=== PATIENT | female | born 1990 | race Caucasian/White ===

== ENCOUNTER 2023-02-14 14:35 | Emergency (ER) | payer SELFPAY ==
[2023-02-14 14:53] VITALS: BP 126/75; PULSE 75; RESP 16; TEMP 37; O2SAT 100
--- NOTE | 2023-02-14 15:30 | ED.GENADULT ---
HPI - General Adult General Chief complaint: Back Pain/Injury Stated complaint: back pain Time Seen by Provider: 02/14/23 15:23 Source: patient and RN notes reviewed Mode of arrival: ambulatory Limitations: no limitations History of Present Illness HPI narrative: Patient presents today complaining of left flank pain since last week. Pain now radiates around the lateral portion of her abdomen. Denies any urinary symptoms. She has been taking ibuprofen without much relief. History of kidney stones with lithotripsy approximately 10 years ago. 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 Related Data Allergies Allergy/AdvReac Type Severity Reaction Status Date / Time Iodinated Contrast Media Allergy Unknown Itching Verified 02/14/23 14:43 Contrast Media Allergy Unknown itching/[place] Uncoded 02/14/23 14:43 h Review of Systems Review of Systems: CONSTITUTIONAL: Denies body aches, fever, chills, or sweats. EYES: Denies visual changes, redness, or discharge. ENT: Denies rhinorrhea, congestion, sore throat, or otalgia. CARDIOVASCULAR: Denies chest pain, palpitations, or edema. RESPIRATORY: Denies cough or dyspnea. GASTROINTESTINAL: Denies abdominal pain, nausea, vomiting, or diarrhea.+ left flank pain GENITOURINARY: Denies dysuria or hematuria. SKIN: Denies rash, itching, or wounds. MUSCULOSKELETAL: Denies back pain, joint pain, or myalgia. NEUROLOGIC: Denies headache, numbness, tingling, or weakness. PSYCH: Denies depression or anxiety. [facility] Past Medical History Medical History (Updated 02/14/23 @ 15:39 by Fany Holm, [facility], ) History of kidney stones Comments At time of signature, I have reviewed and agree with nursing past medical, surgical, social and family history unless otherwise noted. Please see nursing chart for further information. There is no relevant family history pertinent to the presenting complaint Exam Narrative: GENERAL: Well-appearing, well-nourished, and in no acute distress. HEAD: Normocephalic, atraumatic. EYES: EOMI. No redness or drainage. Conjunctivae normal. ENT: Mucous membranes pink and moist. NECK: Normal AROM. CHEST: No respiratory distress. Clear to auscultation. HEART: Regular rate and rhythm. No murmur appreciated. Normal peripheral pulses. ABDOMEN: Soft, nontender, nondistended, normal active bowel sounds. MUSCULOSKELETAL: No bony tenderness. EXTREMITIES: Normal range of motion. No edema. SKIN: Warm, dry, no rash. Capillary refill normal. Normal skin turgor. NEURO: No focal deficits. Alert and oriented x3. Gait steady. PSYCH: Normal affect. No signs of depression or anxiety. Course Course Level of Care: Express Care Visit Vital Signs Vital signs: Vital Signs Temperature 98.6 F 02/14/23 14:53 Pulse Rate 75 02/14/23 14:53 Respiratory Rate 16 02/14/23 14:53 Blood Pressure 126/75 02/14/23 14:53 Pulse Oximetry 100 02/14/23 14:53 Oxygen Delivery Room Air 02/14/23 14:53 Temperature 98.6 F 02/14/23 14:53 Pulse Rate 75 02/14/23 14:53 Respiratory Rate 16 02/14/23 14:53 Blood Pressure 126/75 02/14/23 14:53 Pulse Oximetry 100 02/14/23 14:53 Oxygen Delivery Room Air 02/14/23 14:53 Reviewed. Pt has been instructed to follow up with her PCP regarding her elevated blood pressure today. Medical Decision Making MDM Narrative Medical decision making narrative: Urinalysis is negative for infection. Discussed results with patient. She declines x-ray to try and rule out kidney stone. She declines transfer to the ER for further evaluation. Patient understands that I cannot rule out a kidney stone from [facility] without any further testing. Agrees with plan to discharge with prescription for toradol. Anticipatory guidance given. Differential Diagnosis Differential Diagnosis: UTI, kidney stone, pyelonephritis, back strain Vital Signs Vital Signs: Vital
== END 2023-02-14 15:49 | disposition home or self-care (01) ==
PROVIDERS: Emergency Provider Nurse Practitioner; PCP Physician Assistant
DX: R10.9 Unspecified abdominal pain (principal); Z87.442 Personal history of urinary calculi
CPT/HCPCS: 81003; 99213; G0463

== ENCOUNTER 2024-02-06 15:44 | Emergency (ER) | payer OTHER, SELFPAY ==
--- NOTE | 2024-02-06 15:46 | ED.FEMALEGU ---
HPI - Female Genitourinary General Chief complaint: Urogenital-Female Stated complaint: Uti Symptoms Time Seen by Provider: 02/06/24 15:45 Source: patient Mode of arrival: ambulatory Limitations: no limitations History of Present Illness HPI Narrative: Yarelis is a 33-year-old female patient presenting to clinic today with complaints of possible urinary tract infection. She reports over the past week she has had some lower abdominal cramping. Also reports some pain in the left flank area at times. Just finished up her menses a few days ago. States the abdominal cramping is normal before during and after her menses. States she has been sexually active with a new partner and is concerned for sexually transmitted infections. She denies any vaginal discharge or odor at this time. Was unable to get in to see her primary care so she came into the clinic for evaluation. She denies any fevers, chills, or body aches. History of kidney stones in the past. Related Data Home Medications Medication Instructions Recorded Confirmed acyclovir 400 mg tablet 400 mg PO DAILY 02/06/24 02/06/24 Allergies Allergy/AdvReac Type Severity Reaction Status Date / Time Iodinated Contrast Media Allergy Unknown Itching Verified 02/14/23 14:43 Contrast Media Allergy Unknown itching/[place] Uncoded 02/14/23 14:43 h Review of Systems Review of Systems: Pertinent positives per HPI. Patient denies any fever, chills, rash, headache, visual changes, dizziness, cough, runny nose, sore throat, shortness of breath, chest pain, palpitations, nausea, vomiting, diarrhea, constipation, abdominal pain, or any urinary issues. PMFSH Past Medical History Medical History History of kidney stones Comments At the time of my signature, I reviewed and agree with the nursing past medical, surgical, social, and family history. There is no relevant family history pertinent to the patient complaint. Exam Narrative: General: Well-developed, well nourished, in no apparent distress. Head: Normocephalic, atraumatic. Cardio: Regular rate and rhythm, s1 and s2 normal, no murmur appreciated. Resp: Clear to auscultation bilaterally, no rhonchi, rales, wheezing or rubs. Abdomen: Soft, pliable, bowel sounds present in all quadrants, lower abdomen-tender to palpation, no organomegly, no CVAT tenderness. Course Course Emergency Course: Portions of this record may have been created with voice recognition software. Level of Care: Express Care Visit Vital Signs Vital signs: Vital signs reviewed MDM - Female Genitourinary MDM Narrative Medical decision making narrative: At the time of visit patient is resting comfortably on the exam table. Patient appears to be nontoxic. Labs: Urinalysis is negative for any sign of infection, blood, protein. Bedside test was negative. Chlamydia, gonorrhea, trich, and bacterial vaginosis swabs were sent to the lab. Plan: I suspect patient has lower abdominal cramping after menses as per her normal. Is concerned about STI. Testing was sent to the lab. Will treat based on positive lab results. Supportive measures were discussed with the patient and they voiced understanding discharge instructions and agrees to treatment plan. Return precautions reviewed Differential Diagnosis Differential diagnosis: Likely urinary tract infection, bacterial vaginosis, trichomoniasis, cervicitis, ovarian cyst, vaginitis and cystitis Discharge Plan Discharge Clinical Impression: Bilateral lower abdominal cramping, Concern about STI in female without diagnosis Patient Disposition: Home, Self-Care Condition: Stable Instructions: Antibiotic Form, Safe Sex Practices (ED), Abdominal Pain (ED) Additional Instructions: UA is negative for any sign of blood, infection, or protein in your urine Bedside test was negative Chlamydia, gonorrhea, Trichomonas, an
[2024-02-06 15:59] VITALS: BP 112/73; PULSE 91; RESP 16; TEMP 36.4; O2SAT 99
[2024-02-06 16:04] LABS: EDUAAPPEAR Clear; EDUABILI Negative; EDUABLOOD Negative; EDUACOLOR1 Yellow; EDUAGLUCOSE Negative; EDUAKETONE Negative; EDUALEUKO Negative; EDUANITRATE Negative; EDUAPH 7.5; EDUAPROTEIN Negative; EDUASPGRAVITY 1.015; EDUAUROBILI 0.2
[2024-02-06 16:11] LABS: BEDSIDEPREGUCG Negative
--- NOTE | 2024-02-06 17:58 | PC.NURSE ---
1620 pelvic and specimen collection completed by provider.
[2024-02-06 20:18] LABS: Trichomonas Vag PCR NOT DETECTED (NOT DETECTE)
[2024-02-06 20:43] LABS: Chlamydia trachomatis NOT DETECTED (NOT DETECTE); Neisseria gonorrhoeae PCR NOT DETECTED (NOT DETECTE)
[2024-02-08 17:04] LABS: Bacterial Vaginosis POSITIVE (NEGATIVE)
== END 2024-02-06 16:40 | disposition home or self-care (01) ==
PROVIDERS: Emergency Provider Nurse Practitioner Family; PCP Physician Assistant
DX: R10.31 Right lower quadrant pain (principal); R10.32 Left lower quadrant pain; Z20.2 Contact with and (suspected) exposure to infections with a predominantly sexual mode of transmission; Z87.442 Personal history of urinary calculi
CPT/HCPCS: 81003; 81025; 81513; 87491; 87591; 87661; 99214; G0463